=== PATIENT | female | born 1995 | race Caucasian/White ===

== ENCOUNTER 2020-03-04 15:32 | Outpatient (CLI) | payer OTHER, SELFPAY ==
--- NOTE | ~2020-03-04 | US_ITS ---
EXAMINATION: US thyroid DATE: 03/04/2020 15:54 INDICATION: Nontoxic goiter TECHNIQUE: Multiple ultrasound images of the thyroid were obtained. COMPARISON: 10/27/2014 FINDINGS: The right thyroid lobe measures 5.1 x 1.9 x 2.5 cm. The left thyroid lobe measures 5.3 x 1.8 x 2.2 c m. The thyroid isthmus measures 3 mm in thickness. No significant change in a 2.0 x 1.0 x 1.5 cm wide r than tall solid hypoechoic right thyroid nodule with ill-defined margins and without echogenic foci (TI-RADS 4, moderately suspicious , FNA if >=1.5 cm, annual followup is >1 cm). This nodule measured 1.8 x 1.0 x 1.2 cm on 10/27/2014 with biopsy on 12/11/2014 read as consistent with benign follicular n odule. Diffuse heterogeneous thyroid echogenicity with coarsened echotexture and increased vascular f low on color Doppler consistent with thyroiditis. IMPRESSION: 1. No significant change in a 2.0 cm TI RADS 4 right thyroid nodule with prior benign biopsy. 2. Heterogeneous hypervascular thyroid likely chronic lymphocytic (Jung) thyroiditis. Reviewed, dictated and finalized at location A. STRIAL HYGIENIST IMPRESSION: 1. No significant change in a 2.0 cm TI RADS 4 right thyroid nodule with prior benign biopsy. 2. Heterogeneous hypervascular thyroid likely chronic lymphocytic (Jung) t hyroiditis.
== END 2020-03-04 15:33 | disposition home or self-care (01) ==
LOC: ANHIMG 15:36
PROVIDERS: PCP Emergency Medicine; Visit Provider Emergency Medicine
DX: E04.9 Nontoxic goiter, unspecified (principal); R94.6 Abnormal results of thyroid function studies
CPT/HCPCS: 76536

== ENCOUNTER 2020-03-05 09:17 | Outpatient (CLI) | payer OTHER, SELFPAY ==
[2020-03-05 10:08] LABS: Alanine Aminotransferase 22 U/L (4-35); Albumin Level 4.2 g/dL (3.5-5.1); Alkaline Phosphatase 63 U/L (38-126); Anion Gap 6 mmol/L (8-16); Aspartate Amino Transferase 26 U/L (14-36); Bilirubin,Total 0.7 mg/dL (0.2-1.3); Blood Urea Nitrogen 11 mg/dL (7-17); Calcium 9.3 mg/dL (8.4-10.2); Carbon Dioxide 28 mmol/L (22-30); Chloride 102 mmol/L (98-107); Cholesterol 162 mg/dL (0-200); Estimated Glomerular Filt Rate > 60; Glucose 95 mg/dL (65-105); HDL Direct 63 mg/dL; Potassium 3.9 mmol/L (3.4-5.0); Sodium 136 mmol/L (137-145); Triglycerides 49 mg/dL (<150)
[2020-03-05 10:19] LABS: LDL Cholesterol Direct 81 mg/dL
[2020-03-05 10:39] LABS: Thyroid Stimulating Hormone 0.854 uIU/mL (0.465-4.680); Total Triiodothyronine (T3) 1.32 NG/ML (0.97-1.69)
[2020-03-05 10:58] LABS: Free T4 Free Thyroxine 1.12 ng/mL (0.78-2.19)
[2020-03-08 05:42] LABS: Thyroid Peroxidase Antibodies 593 IU/mL (<9)
== END 2020-03-05 09:18 | disposition home or self-care (01) ==
PROVIDERS: PCP Emergency Medicine; Visit Provider Emergency Medicine
DX: Z13.220 Encounter for screening for lipoid disorders (principal); E78.5 Hyperlipidemia, unspecified; R94.6 Abnormal results of thyroid function studies; E04.9 Nontoxic goiter, unspecified
CPT/HCPCS: 36415; 80053; 80061; 84439; 84443; 84480; 86376

== ENCOUNTER 2021-09-01 15:28 | Outpatient (CLI) | payer OTHER, SELFPAY ==
--- NOTE | ~2021-09-01 | US_ITS ---
EXAMINATION: US thyroid DATE: 09/01/2021 16:17 INDICATION: Nontoxic single thyroid nodule. TECHNIQUE: Multiple ultrasound images of the thyroid were obtained. COMPARISON: Ultrasound 03/04/2020, 12/11/14 FINDINGS: The right thyroid lobe measures 5.0 x 2.5 x 2.2 cm. The left thyroid lobe measures 4.8 x 2.2 x 1.6 c m. The thyroid demonstrates heterogeneous echogenicity and increased vascularity. In the right thyro id lobe, there is a 1.9 cm solid, isoechoic, wider than tall nodule with ill-defined margin without e chogenic foci (TI-RADS TR4), stable from 12/11/14 when biopsy was benign. IMPRESSION: 1. Heterogeneous, hypervascular thyroid, consistent with chronic lymphocytic (Jung) thyroiditis. 2. Stable benign right thyroid nodule. No follow-up is needed. Reviewed, dictated and finalized at location A. IMPRESSION: 1. Heterogeneous, hypervascular thyroid, consistent with chronic lymphocytic (H ashimoto) thyroiditis. 2. Stable benign right thyroid nodule. No follow-up is needed.
== END 2021-09-01 15:29 | disposition home or self-care (01) ==
PROVIDERS: PCP Emergency Medicine; Visit Provider Emergency Medicine
DX: E04.1 Nontoxic single thyroid nodule (principal)
CPT/HCPCS: 76536

== ENCOUNTER 2022-02-09 09:49 | Outpatient (CLI) | payer OTHER, SELFPAY ==
[2022-02-09 10:10] LABS: Basophils Absolute Auto 0.1 K/mm3 (0.0-0.1); Basophils Percent Auto 0.8 % (0.2-1.2); Eosinophils Absolute Auto 0.1 K/mm3 (0-0.3); Hemoglobin 12.5 g/dL (12.0-15.0); Immature Granulocyte Absolute 0.02 K/mm3 (0.00-0.031); Immature Granulocyte Percent A 0.3 % (0-0.5); Lymphocytes Absolute Auto 1.56 K/mm3 (0.9-3.2); Lymphocytes Percent Auto 22.1 % (18.3-44.2); Mean Corpuscular HGB Conc 33.8 g/dl (32-36); Mean Corpuscular Hemoglobin 29.3 pg (26-34); Mean Corpuscular Volume 86.9 fl (80-100); Mean Platelet Volume 10.2 fl (7.4-10.4); Monocytes Absolute Auto 0.4 K/mm3 (0.1-0.6); Monocytes Percent Auto 5.9 % (2.6-8.5); Neutrophils Absolute Auto 4.9 K/mm3 (1.3-6.7); Neutrophils Percent Auto 68.9 % (45.5-73.1); Platelet Count Result 271 k/mm3 (150-375); Red Blood Count 4.26 M/mm3 (4.2-5.4); Red Cell Distribution Width 12.7 % (11.5-14.5); White Blood Count 7.1 K/mm3 (4.5-10.0)
[2022-02-09 11:04] LABS: Free T4 Free Thyroxine 0.98 ng/mL (0.78-2.19); HIV 1/2 Ab P24 Ag Result Negative (Negative)
[2022-02-09 11:19] LABS: Hepatitis B Surface Antigen Negative (Negative); Rubella IgG Antibody 23.4 IU/ML
[2022-02-09 16:18] LABS: Rapid Plasma Reagin Non-Reactive (NonReactive)
[2022-02-13 15:52] LABS: CMV IgG Antibody <0.60 U/mL (<0.60)
[2022-02-14 16:25] LABS: Triiodothyronine T3 Free 3.5 pg/mL (2.3-4.2)
== END 2022-02-09 09:50 | disposition home or self-care (01) ==
LOC: ANHLAB 09:50
PROVIDERS: PCP Emergency Medicine; Visit Provider Obstetrics & Gynecology
DX: E06.3 Autoimmune thyroiditis (principal); N94.89 Other specified conditions associated with female genital organs and menstrual cycle
CPT/HCPCS: 36415; 84439; 84443; 84481; 84702; 85025; 86592; 86644; 86703; 86747; 86762; 86787; 86850; 86900; 86901; 87086; 87340; G0432

== ENCOUNTER 2022-02-10 16:02 | Outpatient (CLI) | payer OTHER, SELFPAY ==
--- NOTE | ~2022-02-10 | US_ITS ---
EXAMINATION: US OB <=14 wk fetus w TV DATE: 02/10/2022 16:44 INDICATION: Amenorrhea, unspecified. TECHNIQUE: Real-time transabdominal and transvaginal pelvic ultrasound was performed. COMPARISON: None. FINDINGS: TRANSABDOMINAL ULTRASOUND: The uterus measures 7.6 x 8.4 x 8.2 cm. TRANSVAGINAL ULTRASOUND: There is an intrauterine gestational sac. A yolk sac is identified. The fet al crown rump length measures 4.1 cm, which correlates with an estimated gestational age of 11 weeks and 0 day(s) (+/-) 1 week(s) and 0 day(s). heart motion is identified measuring 164 beats per m inute (bpm) by M-mode Doppler. The cervical length is normal. The right ovary measures 2.3 x 1.5 x 2. 1 cm. The left ovary measures 2.6 x 1.6 x 1.3 cm. There is no free fluid in the pelvis. IMPRESSION: 1. Single living intrauterine gestation with estimated date of delivery of 09/01/2022. Reviewed, dictated and finalized at location A. ON FACING MACHINE OPERATOR IMPRESSION: 1. Single living intrauterine gestation with estimated date of delivery of 09/01.
== END 2022-02-10 16:03 | disposition home or self-care (01) ==
LOC: ANHIMG 16:04
PROVIDERS: PCP Emergency Medicine; Visit Provider Obstetrics & Gynecology
DX: N91.2 Amenorrhea, unspecified (principal); Z33.1 Pregnant state, incidental
CPT/HCPCS: 76801; 76817

== ENCOUNTER 2022-05-05 10:31 | Outpatient (CLI) | payer OTHER, SELFPAY ==
[2022-05-05 11:24] LABS: Free T4 Free Thyroxine 0.69 ng/mL (0.78-2.19)
[2022-05-05 11:26] LABS: Thyroid Stimulating Hormone 0.511 uIU/mL (0.465-4.680)
== END 2022-05-05 10:32 | disposition home or self-care (01) ==
LOC: ANHLAB 10:33
PROVIDERS: PCP Emergency Medicine; Visit Provider Obstetrics & Gynecology
DX: E06.3 Autoimmune thyroiditis (principal)
CPT/HCPCS: 36415; 84439; 84443

== ENCOUNTER 2022-06-16 09:32 | Outpatient (CLI) | payer OTHER, SELFPAY ==
[2022-06-16 11:17] LABS: Basophils Absolute Auto 0.1 K/mm3 (0.0-0.1); Basophils Percent Auto 0.5 % (0.2-1.2); Eosinophils Absolute Auto 0.1 K/mm3 (0-0.3); Eosinophils Percent Auto 1.2 % (0-4.4); Hematocrit 35.5 % (37.0-47.0); Immature Granulocyte Absolute 0.09 K/mm3 (0.00-0.031); Immature Granulocyte Percent A 0.9 % (0-0.5); Lymphocytes Absolute Auto 1.46 K/mm3 (0.9-3.2); Lymphocytes Percent Auto 14.4 % (18.3-44.2); Mean Corpuscular HGB Conc 33.8 g/dl (32-36); Mean Corpuscular Hemoglobin 29.3 pg (26-34); Mean Corpuscular Volume 86.6 fl (80-100); Mean Platelet Volume 9.9 fl (7.4-10.4); Monocytes Absolute Auto 0.5 K/mm3 (0.1-0.6); Monocytes Percent Auto 4.4 % (2.6-8.5); Neutrophils Percent Auto 78.6 % (45.5-73.1); Platelet Count Result 244 k/mm3 (150-375); White Blood Count 10.1 K/mm3 (4.5-10.0)
[2022-06-16 11:27] LABS: Glucose 1 Hour PP 50gm Dose 137 mg/dL
[2022-06-16 11:58] LABS: Free T4 Free Thyroxine 1.09 ng/mL (0.78-2.19)
[2022-06-16 11:59] LABS: Thyroid Stimulating Hormone 0.016 uIU/mL (0.465-4.680)
[2022-06-16 12:08] LABS: HIV 1/2 Ab P24 Ag Result Negative (Negative)
== END 2022-06-16 09:33 | disposition home or self-care (01) ==
PROVIDERS: PCP Emergency Medicine; Visit Provider Obstetrics & Gynecology
DX: Z34.90 Encounter for supervision of normal pregnancy, unspecified, unspecified trimester (principal); E06.3 Autoimmune thyroiditis
CPT/HCPCS: 36415; 82947; 84439; 84443; 85025; 86703; G0432

== ENCOUNTER 2022-07-07 07:25 | Outpatient (CLI) | payer OTHER, SELFPAY ==
[2022-07-07 07:59] LABS: Glucose Fasting Gestational 86 mg/dL (>/=95)
[2022-07-07 09:27] LABS: Glucose 1 Hour Gest 199 mg/dL (>/=180)
[2022-07-07 10:43] LABS: Glucose 2 Hour Gest 176 mg/dL (>/= 155)
[2022-07-07 11:38] LABS: Glucose 3 Hour Gest 80 mg/dL (>/=140)
== END 2022-07-07 07:26 | disposition home or self-care (01) ==
LOC: ANHLAB 07:26
PROVIDERS: PCP Emergency Medicine; Visit Provider Obstetrics & Gynecology
DX: O99.810 Abnormal glucose complicating pregnancy (principal)
CPT/HCPCS: 36415; 76816; 82951; 82952

== ENCOUNTER 2022-07-07 14:04 | Outpatient (CLI) | payer OTHER, SELFPAY ==
--- NOTE | ~2022-07-07 | US_ITS ---
EXAMINATION: US OB follow up DATE: 07/07/2022 14:36 INDICATION: Encounter for supervision of normal . TECHNIQUE: Real-time ultrasound of the pelvis was performed. COMPARISON: Ultrasound 04/22/2022, 02/10/2022 FINDINGS: There is a single living fetus in breech presentation. The placenta is fundal and posterior, >5 cm f rom the cervix. heart rate is 134 beats per minute (bpm). The amniotic fluid index is 12.9 cm, which is normal. The following biometric data were obtained: Biparietal diameter (BPD): 8.1 cm; head circumference (HC): 30.2 cm; abdominal circumference (AC): 28 .4 cm; femur length (FL): 6.4 cm. These measurements are concordant. Estimated weight is 2031 g +/- 305 g, which correlates with the 62nd percentile when 09/01/22 is used as estimated date of delivery. As single measurements, these parameters are each equal to the following estimated gestational ages: BPD: 32 weeks 5 days. HC: 33 weeks 3 days. AC: 32 weeks 3 days. FL: 32 weeks 6 days. estimated gestational age based solely on measurements from this exam is 32 weeks 6 days +/- 2 weeks 2 days. IMPRESSION: 1. Single living fetus in breech presentation. 2. Estimated weight is 2031 g +/- 305 g, which correlates with the 62nd percentile when 09/01/22 is used as estimated date of delivery. This date was set by ultrasound on 02/10/2022. Reviewed, dictated and finalized at location A.
== END 2022-07-07 14:05 | disposition home or self-care (01) ==
LOC: ANHIMG 14:07
PROVIDERS: PCP Emergency Medicine; Visit Provider Obstetrics & Gynecology
DX: Z34.90 Encounter for supervision of normal pregnancy, unspecified, unspecified trimester (principal)
CPT/HCPCS: 76816

== ENCOUNTER 2022-08-01 09:15 | Outpatient (RCR) | payer OTHER, SELFPAY ==
[2022-07-28 09:34] VITALS: BMI 27.6
[2022-07-28 13:41] VITALS: BMI 27.6
== END 2022-10-17 08:59 | disposition home or self-care (01) ==
LOC: ANHDMC 09:15
PROVIDERS: PCP Emergency Medicine; Visit Provider Student in an Organized Health Care Education/Training Program
DX: O24.419 Gestational diabetes mellitus in pregnancy, unspecified control (principal); Z3A.00 Weeks of gestation of pregnancy not specified; Z71.3 Dietary counseling and surveillance; Z71.89 Other specified counseling
CPT/HCPCS: 97802; G0108

== ENCOUNTER 2022-08-09 16:57 | Outpatient (CLI) | payer OTHER, SELFPAY ==
--- NOTE | ~2022-08-09 | US_ITS ---
EXAMINATION: US OB follow up DATE: 08/09/2022 16:59 INDICATION: Assess growth and amniotic fluid index. Gestational diabetes during third trimester . TECHNIQUE: Real-time ultrasound of the pelvis was performed. The interpreting radiologist was not pre sent for the study. COMPARISON: None. FINDINGS: There is a single living fetus in vertex presentation. The placenta is posterior fundal. heart rate is 136 beats per minute (bpm). The amniotic fluid index is 20.7 cm, which is normal (5th%-95%: 7.7-24.9 cm at 36 weeks estimated gestational age). The following biometric data were obtained: BPD: 9.0 cm -> 36 weeks 2 days Head circumference: 32.3 cm -> 36 weeks 3 days Abdominal circumference: 33.6 cm -> 37 weeks 4 days Femur length: 7.2 cm -> 36 weeks 4 days These measurements are concordant. Head circumference to abdominal circumference ratio: 0.96 (normal range 0.92-1.06). Estimated weight: 3101 g (+/-) 465 g or 6 lbs. 13 oz. (+/-) 1 lbs. 0 oz. IMPRESSION: 1. Single living fetus in vertex presentation with heart rate of 136 bpm. 2. Normal amniotic fluid index of 20.7 cm. 3. Estimated weight is 64th percentile by Hadlock criteria when 09/01/2022 is used as the estimat ed date of delivery (LAYLA). Please correlate with clinical information or earlier ultrasounds for most accurate LAYLA. Reviewed, dictated and finalized at location A. IMPRESSION: 1. Single living fetus in vertex presentation with heart rate of 136 bpm. 2. Normal amniotic fluid index of 20.7 cm. 3. Estimated weight is 64th percentile by Hadlock criteria when 09/01/2022 is used as the estimated date of delivery (LAYLA). Please correlate with clinical information or earlier ultrasounds for most accurate LAYLA.
[2022-08-09 18:54] LABS: Thyroid Stimulating Hormone Reflex < 0.015 uIU/mL (0.465-4.68)
[2022-08-10 11:45] LABS: Free T4 Free Thyroxine Reflex 1.02 ng/dL (0.78-2.19)
[2022-08-10 14:31] LABS: Total Triiodothyronine (T3) 2.16 NG/ML (0.97-1.69)
== END 2022-08-09 16:58 | disposition home or self-care (01) ==
PROVIDERS: PCP Emergency Medicine; Visit Provider Obstetrics & Gynecology
DX: Z34.90 Encounter for supervision of normal pregnancy, unspecified, unspecified trimester (principal); E06.3 Autoimmune thyroiditis
CPT/HCPCS: 36415; 59025; 76816; 84439; 84443; 84480

== ENCOUNTER 2022-08-19 09:14 | Outpatient (CLI) | payer OTHER, SELFPAY ==
[2022-08-19 11:12] LABS: Thyroid Stimulating Hormone < 0.015 uIU/mL (0.465-4.680)
[2022-08-19 11:22] LABS: Total Triiodothyronine (T3) 1.67 NG/ML (0.97-1.69)
[2022-08-26 05:32] LABS: Triiodothyronine T3 Free 2.9 pg/mL (2.3-4.2)
== END 2022-08-19 09:15 | disposition home or self-care (01) ==
PROVIDERS: PCP Emergency Medicine; Referring Provider Obstetrics & Gynecology; Visit Provider Internal Medicine Endocrinology, Diabetes & Metabolism
DX: E06.3 Autoimmune thyroiditis (principal); E04.9 Nontoxic goiter, unspecified
CPT/HCPCS: 36415; 84439; 84443; 84480; 84481

== ENCOUNTER 2022-08-25 10:30 | Outpatient (RCR) | payer OTHER, SELFPAY ==
[2022-07-21 13:44] VITALS: BP 124/72; PULSE 95
[2022-07-27 12:50] VITALS: BP 112/71; PULSE 95
[2022-08-03 15:02] VITALS: BP 120/78; PULSE 98
[2022-08-09 12:19] VITALS: BP 117/67; PULSE 86
[2022-08-18 12:00] VITALS: BP 112/71
--- NOTE | ~2022-08-25 | US_ITS ---
EXAMINATION: US OB limited w BPP DATE: 08/25/2022 12:38 CDT INDICATION: Diabetes mellitus. TECHNIQUE: Real-time transabdominal obstetric ultrasound. FINDINGS: Comparison to 08/09/2022 There is a single living fetus in vertex presentation. The placenta is fundal posterior without plac enta previa. cardiac activity and movement is noted with a heart rate of 137 beats per minute. A mniotic fluid index is high measuring 24.7 cm (normal range for gestational age is 7.2-22.6 cm). Biophysical profile: breathin of 2 movement: 2 of 2 tone: 2 of 2 Amniotic flud pocket: 2 of 2 Total score: 8 of 8 IMPRESSION: 1. Single living intrauterine in vertex presentation. 2: Total biophysical profile score of 8/8. 3: Polyhydramnios. DOLORES measures 24.7 cm. Reviewed, dictated and finalized at location L.
[2022-08-25 12:55] VITALS: BP 118/64; PULSE 83
== END 2022-09-02 17:39 | disposition home or self-care (01) ==
LOC: ANHOBOP 10:30
PROVIDERS: PCP Emergency Medicine; Visit Provider Obstetrics & Gynecology
DX: O24.419 Gestational diabetes mellitus in pregnancy, unspecified control (principal); O26.893 Other specified pregnancy related conditions, third trimester; R03.0 Elevated blood-pressure reading, without diagnosis of hypertension; Z3A.34 34 weeks gestation of pregnancy; Z3A.35 35 weeks gestation of pregnancy; Z3A.36 36 weeks gestation of pregnancy; Z3A.38 38 weeks gestation of pregnancy; Z3A.39 39 weeks gestation of pregnancy
CPT/HCPCS: 59025; 76815; 76819; J2795

== ENCOUNTER 2022-08-30 15:48 | Inpatient (IN) | payer OTHER, SELFPAY ==
--- NOTE | 2022-08-30 14:33 | PM.IMHP ---
H&P: HPI History of Present Illness Date/Time: 08/30/22 14:33 Chief Complaint: induction of labor Narrative: Kelli is a 26yo @ 39.5wks who presents for IOL. She reports good movement. No regular ctx. No VB or LOF. She has had regular care. Her is complicated by: - A1GDM - Jung's thyroiditis; recently hyperthyroid, endo following Review of Systems Constitutional: Constitutional: Denies chills and Denies fever(s) Eyes: Eyes: Denies change in vision Cardiovascular: Cardiovascular: Denies chest pain Respiratory: Respiratory: Denies dyspnea Gastrointestinal: Gastrointestinal: Denies abdominal pain Genitourinary: Genitourinary: Denies abnormal vaginal bleeding Neurologic: Denies headache(s) [facility] Past Medical History Medical History Abnormal glucose tolerance in Abnormal thyroid function test Suppression of menses Thyroid enlargement Surgical History Surgical History [place] teeth removed (~2016) Family History Family History Sibling Epilepsy Father Type 2 diabetes mellitus with diabetic neuropathy, unspecified Diabetes mellitus Vision loss Grandparent Back pain Cataract Diabetes mellitus Hypertension Mother Diabetes mellitus Hyperlipidemia, unspecified Hypertension Social History Social History Social History: Patient drinks 2-3 cups of caffeine daily. She exercises once weekly. 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 Gender identity (if verbalized by the patient): Female Sexual Orientation (if Verbalized by the Patient): Straight or Heterosexual Spiritual care concerns: No Meds Home Medications and Allergies Home Medications Medication Instructions Recorded Confirmed Type vitamins-iron fumarate 65 1 tablet PO DAILY 05/03/22 08/30/22 History mg iron-folic acid 1 mg tablet Allergies Allergy/AdvReac Type Severity Reaction Status Date / Time No Known Drug Allergies Allergy Unknown none Verified 08/25/22 09:43 Exam Const: General: cooperative, healthy appearing, comfortable and no acute distress Resp: Effort & Inspection: normal respiratory effort Cardio: Rate: regular rate GI: GI Palp: No abdominal tenderness : Other: FHT's: 130's/ mod nathanael/ + accels/ no decels - cat 1 TOCO: ctxs q2-3min Cervix: /-3 Presentation: cephalic Membranes: intact Skin: General skin exam: normal color Neuro: General: patient oriented x3 Extrem: General: normal to inspection Psych: Appearance: grossly normal Affect: normal affect Attitude: cooperative Assessment and Plan Assessment and plan (1) Gestational diabetes: Qualifiers: Gestational diabetes mellitus control: diet-controlled Trimester: third trimester Qualified Code(s): O24.410 - Gestational diabetes mellitus in , diet controlled Code(s): O24.419 - Gestational diabetes mellitus in , unspecified control Status: Acute Assessment and Plan: - Proceed with medical IOL; cervidil overnight - Continuous monitoring; currently reassuring - if tachysystole; will pu
[2022-08-30 16:39] VITALS: BMI 29.0
[2022-08-30 16:50] LABS: Basophils Absolute Auto 0.1 K/mm3 (0.0-0.1); Basophils Percent Auto 0.6 % (0.2-1.2); Eosinophils Absolute Auto 0.1 K/mm3 (0-0.3); Eosinophils Percent Auto 0.7 % (0-4.4); Hematocrit 35.6 % (37.0-47.0); Hemoglobin 11.9 g/dL (12.0-15.0); Immature Granulocyte Absolute 0.09 K/mm3 (0.00-0.031); Immature Granulocyte Percent A 0.7 % (0-0.5); Lymphocytes Absolute Auto 1.82 K/mm3 (0.9-3.2); Lymphocytes Percent Auto 14.3 % (18.3-44.2); Mean Corpuscular HGB Conc 33.4 g/dl (32-36); Mean Corpuscular Hemoglobin 28.7 pg (26-34); Mean Corpuscular Volume 85.8 fl (80-100); Mean Platelet Volume 10.8 fl (7.4-10.4); Monocytes Absolute Auto 0.6 K/mm3 (0.1-0.6); Monocytes Percent Auto 4.7 % (2.6-8.5); Neutrophils Absolute Auto 10.1 K/mm3 (1.3-6.7); Platelet Count Result 254 k/mm3 (150-375); Red Blood Count 4.15 M/mm3 (4.2-5.4); Red Cell Distribution Width 13.8 % (11.5-14.5); White Blood Count 12.7 K/mm3 (4.5-10.0)
[2022-08-30 16:56] LABS: Glucose Point of Care 85 mg/dl (65-105)
[2022-08-30 17:00] VITALS: BP 132/76; PULSE 100
[2022-08-30 17:15] VITALS: BP 130/75; PULSE 89
--- NOTE | 2022-08-30 17:22 | WPDHPUPDATE1 ---
History and Physical Update Update Date/Time: 08/30/22 17:22 History and Physical has been reviewed, including an updated exam of the patient. There are NO changes in the patient's condition. Risks, benefits, and alternatives have been discussed and questions answered. Patient agrees to proceed with procedure.
[2022-08-30] MEDS: DINOPROSTONE 10 MG VAG INSERT VAGINAL (17:29)
--- NOTE | 2022-08-30 17:29 | WPDANESEPPF ---
Anes - Initial Pre Proc Eval Procedure: Labor epidural Date/Time: 08/30/22 17:29 Surgeon: Julissa Hartmann MD Pre Op Diagnosis: Labor pain Pre Op Diagnosis: Induction of Labor Patient Data Age: 26 Gender: F Height: 1.65 m Weight: 79 kg Last Vital Signs Pulse 89 08/30/22 17:15 BP 130/75 08/30/22 17:15 O2 Del Method Room Air 08/30/22 16:39 Allergies Allergy/AdvReac Type Severity Reaction Status Date / Time No Known Drug Allergies Allergy Unknown none Verified 08/25/22 09:43 Home Medications Medication Instructions Recorded Confirmed Type vitamins-iron fumarate 65 1 tablet PO DAILY 05/03/22 08/30/22 History mg iron-folic acid 1 mg tablet Laboratory Tests 08/30/22 08/30/22 16:20 16:42 WBC 12.7 H K/mm3 (4.5-10.0) RBC 4.15 L M/mm3 (4.2-5.4) Hgb 11.9 L g/dL (12.0-15.0) Hct 35.6 L % (37.0-47.0) MCV 85.8 fl (80-100) MCH 28.7 pg (26-34) MCHC 33.4 g/dl (32-36) RDW 13.8 % (11.5-14.5) Plt Count 254 k/mm3 (150-375) MPV 10.8 H fl (7.4-10.4) Immature Gran % (Auto) 0.7 H % (0-0.5) Neut % (Auto) 79.0 H % (45.5-73.1) Lymph % (Auto) 14.3 L % (18.3-44.2) Liberty % (Auto) 4.7 % (2.6-8.5) Eos % (Auto) 0.7 % (0-4.4) Baso % (Auto) 0.6 % (0.2-1.2) Lymph # (Auto) 1.82 K/mm3 (0.9-3.2) Liberty # (Auto) 0.6 K/mm3 (0.1-0.6) Eos # (Auto) 0.1 K/mm3 (0-0.3) Baso # (Auto) 0.1 K/mm3 (0.0-0.1) Abs Immat Gran (auto) 0.09 H K/mm3 (0.00-0.031) Absolute Neuts (auto) 10.1 H K/mm3 (1.3-6.7) Absolute Nucleated RBC 0.0 K/mm3 (0.0-0.012) Nucleated RBC % 0.0 % (0.0-0.2) POC Capillary Glucose 85 mg/dl (65-105) RPR Pending Blood Type A Positive Antibody Screen Pending Patient hx anesthesia problems: none Family hx anesthesia problems: none Results Review: All pre-operative results and documents have been reviewed as part of the pre-operative evaluation. [facility] Past Medical History Medical History Abnormal glucose tolerance in Abnormal thyroid function test Suppression of menses Thyroid enlargement Surgical History Surgical History [place] teeth removed (~2015) Family History Family History Sibling Epilepsy Father Type 2 diabetes mellitus with diabetic neuropathy, unspecified Diabetes mellitus Vision loss Grandparent Back pain Cataract Diabetes mellitus Hypertension Mother Diabetes mellitus Hyperlipidemia, unspecified Hypertension Social History Social History Social History: Patient drinks 2-3 cups of caffeine daily. She exercises once weekly. 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
[2022-08-30 19:00] VITALS: RESP 16; TEMP 36.3
[2022-08-30] MEDS: LACTATED RINGERS 1,000 ML 125 ML IV CONT (19:55)
[2022-08-30 21:00] VITALS: RESP 18; TEMP 36.4
[2022-08-30 21:59] LABS: Glucose Point of Care 105 mg/dl (65-105)
[2022-08-31] VITALS (110 sets, daily range): BP systolic 101–256; BP diastolic 59–202; PULSE 65–124; RESP 18; TEMP 36.3–37.5; O2SAT 95–100
[2022-08-31 02:07] LABS: Glucose Point of Care 84 mg/dl (65-105)
--- NOTE | 2022-08-31 06:52 | PM.OBPNLAB ---
Pain Control Date/time seen: 08/31/22 06:52 Pain control: tolerating well Pelvic Exam Dilation (cm): 1 (.5) Effacement (%): 80 station: -3 Amniotic membrane status: Intact Contractions Monitor mode: External Contraction frequency: 2 (-3) Contraction pattern: Regular Contraction intensity: Moderate Status status: Category l Assessment and Plan Assessment: induction ongoing Comments: - fong catheter placed at 0650 with 30cc of saline in the balloon
[2022-08-31] MEDS: OXYTOCIN 30 UNITS/NS 500 ML 30 UNITS/500 ML BAG IV CONT (07:03)
[2022-08-31 07:16] LABS: Glucose Point of Care 91 mg/dl (65-105)
[2022-08-31] MEDS: LACTATED RINGERS 1,000 ML 125 ML IV CONT ×2 (09:17→16:21)
[2022-08-31 11:04] LABS: Glucose Point of Care 87 mg/dl (65-105)
--- NOTE | 2022-08-31 12:13 | PM.OBPNLAB ---
Pain Control Date/time seen: 08/31/22 12:13 Pain control: epidural Pelvic Exam Dilation (cm): 5 (.5) Effacement (%): 90 station: -1 Amniotic membrane status: Ruptured (AROM, clear 1210) Contractions Monitor mode: External Contraction frequency: 5 Contraction pattern: Regular Contraction intensity: Moderate Status status: Category ll Comments: occasional variable and late noted while on pitocin; reassuring since stopping the pitocin Assessment and Plan Assessment: induction ongoing Plan: continuous present management Comments: - will restart low dose pitocin
[2022-08-31] MEDS: FAMOTIDINE 20 MG/2 ML VIAL IV PUSH (14:05)
[2022-08-31] MEDS: ONDANSETRON INJ 4 MG/2 ML VIAL IV PUSH (14:05)
[2022-08-31 14:09] LABS: Glucose Point of Care 72 mg/dl (65-105)
[2022-08-31 15:56] LABS: Rapid Plasma Reagin Non-Reactive (NonReactive)
--- NOTE | 2022-08-31 17:49 | PM.OBPRVD ---
OB - Delivery Note Procedure Delivery date: 08/31/22 Events: Gestational Diabetes (A1) Induction method: Per Cervidil Protocol Delivery augmentation: Rupture of Membranes and Pitocin Delivery monitor: External FHT and External Uterine Route of delivery: Laceration Description: Vaginal (into right labial) and Superficial Delivery repair: vicryl Specimen: Yes (placenta) Quantitative Blood Loss (ml): 200 Anesthesia type: Epidural Disposition: Floor [place] Baby Date of : 08/31/22 Time of : 17:29 Weeks of gestation at delivery: 39 (.6) gender: Male presentation: vertex position: Right Occiput Anterior Placenta delivery description: Expressed Cord Vessel Description: 3 Vessels, Nuchal Cord, Loose and Delayed Cord Clamping score one minute: 8 score five minutes: 9 Narrative: Kelli progressed to complete dilation and began pushing. She pushed for approximately 2-1/2 hours. She delivered the head over intact perineum. Nuchal cord was noted but delivered through. She easily delivered the infant's shoulders and body without complication. The was immediately placed skin to skin where cry was heard. Delayed cord clamping was performed. The umbilical cord was doubly clamped and cut. A segment of the cord was collected for cord gases. The remaining cord blood was collected for typing. With Pitocin running and gentle downward traction on the cord, the placenta delivered without complications. Minimal bleeding was noted with firm uterine tone. She was examined and a small vaginal laceration extending into the right labia was noted. The laceration was repaired in the normal fashion using 2-0 Vicryl. Sponge, lap, instrument, and needle counts were correct at the end the procedure. Mom and baby were left bonding in the birthing suite in a stable condition. [facility] Delivery Billing Delivery Delivery: Delivery Charge
[2022-08-31] MEDS: OXYTOCIN 30 UNITS/NS 500 ML 30 UNITS/500 ML BAG 125 UNITS IV CONT (18:12)
[2022-08-31] MEDS: IBUPROFEN 600 MG TABLET PO (23:50)
[2022-09-01 01:00] VITALS: BP 99/60; PULSE 97; RESP 18; TEMP 37; O2SAT 98
[2022-09-01 04:18] VITALS: BP 118/76; PULSE 88; RESP 18; TEMP 36.6; O2SAT 97
[2022-09-01 05:04] LABS: Hemoglobin 11.5 g/dL (12.0-15.0)
[2022-09-01 07:35] VITALS: BP 110/72; PULSE 89; RESP 18; TEMP 36.7; O2SAT 98
--- NOTE | 2022-09-01 07:49 | WPDANLDPN2 ---
Anes-Prog Note L&D Date/Time: 09/01/22 07:49 Comfortable throughout: labor and delivery Neuraxial method: epidural Epidural/Spinal procedure site: clean & non-tender Neuro status: Neuro function grossly intact. Cardiovascular status: normal Respiratory status: normal Airway patency: baseline Mental status: baseline Post-Op hydration status: normal Vital Signs: Last Vital Signs Temp 36.6 C 09/01/22 04:18 Pulse 88 09/01/22 04:18 Resp 18 09/01/22 04:18 BP 118/76 09/01/22 04:18 Pulse Ox 97 09/01/22 04:18 O2 Del Method Room Air 09/01/22 01:00 Pain score (VAS): 1 I/O: Intake & Output 08/31/22 08/31/22 09/01/22 15:59 23:59 07:59 Intake Total 1500 Output Total 200 Balance 1300 Post-procedural complaints: none Patient feedback: Patient satisfied with anesthetic care.
[2022-09-01] MEDS: IBUPROFEN 600 MG TABLET PO (08:55)
[2022-09-01] MEDS: MULTIVIT/MIN/PREN/FOL AC/IRON TABLET 1 TAB PO (08:55)
[2022-09-01] MEDS: DOCUSATE SODIUM 100 MG CAPSULE PO (08:56)
[2022-09-01] MEDS: WITCH HAZEL 40 PADS 1 PAD TOPICAL (08:57)
[2022-09-01] MEDS: BENZOCAINE 20% AER SPR (*SP) 56 GM CAN 1 SPRAY TOPICAL (08:57)
[2022-09-01 12:30] VITALS: BP 124/78; PULSE 91; RESP 18; TEMP 36.5; O2SAT 99
--- NOTE | 2022-09-01 12:57 | P.PNOB_ITS ---
OB - PN: Subj Subjective Date/time seen: 09/01/22 12:57 Narrative: PPD#1 Kelli reports doing well today. 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 Her pain is controlled. She is tolerating regular diet, voiding, passing gas, and ambulating without issues. She is breast feeding. She would like her son circumcised. OB - PN: Obj Data Labs 09/01/22 04:27 Labs: Laboratory Results - last 24 hr 08/30/22 08/31/22 09/01/22 16:20 14:01 04:27 Hgb 11.5 L Hct 35.0 L POC Capillary Glucose 72 RPR Non-reactive OB - PN A/P Assessment and Plan (1) Status post vaginal delivery: Status: Acute Plan day: 1 Plan: routine care Comments: - Pelvic rest; take meds as prescribed - ER return precautions: fever, n/v/abd pain, bleeding, HTN Time Spent With Patient Time: Total time spent is greater than 50% in coordination of care (as documented) at patient's floor/unit and/or counseling patient: Review of Systems Constitutional: Constitutional: Denies chills, Denies fever(s) and Denies headache(s) Eyes: Eyes: Denies change in vision ENT: Denies dizziness and Denies headache(s) Cardiovascular: Cardiovascular: Denies chest pain, Denies palpitations and Denies dyspnea Respiratory: Respiratory: Denies cough and Denies dyspnea Gastrointestinal: Gastrointestinal: Denies nausea and Denies vomiting Neurologic: Denies dizziness and Denies headache(s) Endocrine: Endocrine: Denies palpitations Exam Const: General: cooperative, comfortable and no acute distress Orientation/consciousness: patient oriented x3 Resp: Effort & Inspection: normal respiratory effort Auscultation: clear to auscultation bilaterally Cardio: Rate: regular rate GI: Inspection: non-distended GI Palp: No abdominal tenderness and Yes Soft to palpation Auscultation: normal bowel sounds : Other: fundus firm Skin: General skin exam: normal color Neuro: General: patient oriented x3 Extrem: General: normal to inspection Psych: Appearance: grossly normal Affect: normal affect Attitude: cooperative
[2022-09-01 18:47] VITALS: BP 119/86; PULSE 96; RESP 16; TEMP 36.7; O2SAT 100
[2022-09-02 07:50] VITALS: BP 114/70; PULSE 92; RESP 18; TEMP 36.8; O2SAT 99
[2022-09-02] MEDS: IBUPROFEN 600 MG TABLET PO (08:00)
[2022-09-02] MEDS: MULTIVIT/MIN/PREN/FOL AC/IRON TABLET 1 TAB PO (08:00)
[2022-09-02] MEDS: DOCUSATE SODIUM 100 MG CAPSULE PO (08:00)
--- NOTE | 2022-09-02 11:43 | PM.OBDSVD ---
DS: Admitting Diagnosis Discharge Date 09/02/22 Admitting Diagnosis induction of labor A1gdm DS: Discharge Diagnosis Discharge Diagnosis (1) Status post vaginal delivery: Status: Acute OB - DS: Summary OB Procedures : NST and Ultrasound OB Procedures Intrapartum: Spontaneous Vag Delivery OB Procedures: : None Peripartum Data Delivery Method: Natural Vaginal Laceration Description: Vaginal - 1st Degree and Labial complications: none 1: Gender: Male Disposition of : home Status at Discharge Functional status at discharge: independent ambulation Overall status at discharge: patient is back to baseline Time Spent with Patient Time attestation: Total time spent providing and/or coordinating discharge services: Time spent: Less than 30 minutes Exam Const: General: cooperative, healthy appearing, comfortable and no acute distress Orientation/consciousness: patient oriented x3 Resp: Effort & Inspection: normal respiratory effort Auscultation: clear to auscultation bilaterally Cardio: Rate: regular rate GI: Inspection: non-distended GI Palp: No abdominal tenderness and Yes Soft to palpation Auscultation: normal bowel sounds : Other: fundus firm Skin: General skin exam: normal color Neuro: General: patient oriented x3 Extrem: General: normal to inspection Psych: Appearance: grossly normal Affect: normal affect Attitude: cooperative DS: Data Data Completed and Pending Completed studies during hospitalization: Pending at discharge 08/31/22 17:34 Surgical [PTH] Routine Discharge Plan Discharge Attending physician on discharge: Julissa Hartmann Discharging Clinician: Julissa Hartmann Anticipated Discharge Date/Time: 09/02/22 15:00 Patient Disposition: Home, Self-Care Activity: may shower, no straining and pelvic rest Diet: regular Discharge Instructions: Education: Mom and Baby Guide Given to: Mother Follow-Up: Call your delivering provider's office for an appointment to be seen in: 4 Weeks Mom [facility] follow[facility]up appointment. Appointment Date/Time: September 03, 2022 at 10:00 am What to expect at your follow-up visit: Blood Pressure Check Physical Assessment Call [phone] if you are unable to keep your appointment time. BREAST CARE: * Wear a snug supportive bra. * For engorgement discomfort: Breast Feeding: * Apply warm moist washcloths * Express milk as needed to relieve engorgement * Wear loose clothing * For sore nipples: * Identify correct latch-on * Apply warm moist washcloths before and after nursing * Air dry nipples after nursing * May apply Lansinoh cream to nipples EPISIOTOMY/PERINEAL CARE: * Until bleeding stops, use your hortencia bottle after urinating * Change your pad frequently throughout the day * You may take sitz baths several times a day (fill your bathtub with warm water and soak for 20 minutes.) Do NOT bathe in the water * No tub baths until seen by your physician - You may shower ACTIVITY: * Rest as much as possible. * Do not exercise or lift anything heavier than your baby (such as laundry or other children.) * Avoid stairs or driving as much as possible. * Do not put anything into the vagina. No douching, tampons, or sexual activity until seen by physician. NOTIFY PHYSICIAN IF YOU HAVE ANY QUESTIONS OR IF ANY OF THE FOLLOWING SYMPTOMS OCCUR: * If your vaginal area becomes red, swollen, or more painful than what you have experienced in the hospital. * If your vaginal bleeding becomes foul smelling. * If your vaginal bleeding becomes more heavy than a period or if your bleeding changes from pink to bright red. However, you may pass an occasional walnut-sized clot once or twice for the first week . * If you experience a s
--- NOTE | 2022-09-02 15:21 | PC.NURSE ---
[id number] Consulted with patient to assess needs related to . Mother led conversation with her experience with feeding baby so far with visible small bruises on bilateral areolas. Mother works well with her infant and has supplemented related to infant fussing after feedings. Reviewed working with infant, supporting breast and how to protect the nipples with an optimal deep latch, good positioning, and good hand washing. Encouraged understanding the benefits of skin to skin, responding to feeding cues, frequencies of feeding 8-12 times in 24 hours (approximately 2-3 hours), duration of feedings, milk production, intake/output feeding sheet and signs of adequate intake encouraging swallowing at the breast. Reviewed positioning and alignment, supporting breast, off-centered (asymmetrical latch) and leading with the chin with big, open, wide gape. latched optimally to the left breast in football position. Education given to mother of how to visualize suck/swallow ratios and listen for drinking at the breast. was able to maintain latch without discomfort to mother. Nipple care reviewed with optimal latch, good positioning and using clean hands when feeding her infant and touching her breast. Resources used to facilitate learning were used from the mom and baby guide. Mother voiced understanding of the education shared, to call for assistance if the infant does not latch or if there is discomfort with . Reported to the primary RN. 1110- Assessed flange size and discussed cleaning, care and frequency to protect her milk supply. Mother voiced knowledge of education and has Mother/baby RN experience as well. Encouraged the new mother to call with any questions or concerns.
[2022-09-03 10:16] VITALS: BP 115/78; PULSE 78; RESP 20; TEMP 37; O2SAT 100
== END 2022-09-02 14:15 | disposition home or self-care (01) | DRG 807 ==
LOC: ANHLDR 08-31 14:56 → ANHOB2 08-31 20:14
PROVIDERS: Admitting Provider Obstetrics & Gynecology; PCP Emergency Medicine; Visit Provider Obstetrics & Gynecology
DX: O24.420 Gestational diabetes mellitus in childbirth, diet controlled (principal); Z37.0 Single live birth; O99.284 Endocrine, nutritional and metabolic diseases complicating childbirth; E06.3 Autoimmune thyroiditis; O70.0 First degree perineal laceration during delivery; O69.81X0 Labor and delivery complicated by cord around neck, without compression, not applicable or unspecified; O77.0 Labor and delivery complicated by meconium in amniotic fluid; Z3A.39 39 weeks gestation of pregnancy
CPT/HCPCS: 36415; 82948; 85014; 85018; 85025; 86592; 86850; 86900; 86901; 88307; A9270; J2405; J2590; J2795; J7120

== ENCOUNTER 2022-09-08 11:51 | Outpatient (CLI) | payer OTHER, SELFPAY ==
[2022-09-08 12:52] LABS: Free T4 Free Thyroxine 0.86 ng/mL (0.78-2.19)
[2022-09-08 12:58] LABS: Total Triiodothyronine (T3) 2.05 NG/ML (0.97-1.69)
[2022-09-08 13:06] LABS: Thyroid Stimulating Hormone 0.327 uIU/mL (0.465-4.680)
[2022-09-12 13:23] LABS: Triiodothyronine T3 Free 3.3 pg/mL (2.3-4.2)
== END 2022-09-08 11:52 | disposition home or self-care (01) ==
LOC: ANHLAB 11:53
PROVIDERS: PCP Emergency Medicine; Visit Provider Internal Medicine Endocrinology, Diabetes & Metabolism
DX: E04.9 Nontoxic goiter, unspecified (principal); R94.6 Abnormal results of thyroid function studies
CPT/HCPCS: 36415; 84436; 84439; 84443; 84480; 84481

== ENCOUNTER 2022-10-26 09:36 | Outpatient (CLI) | payer OTHER, SELFPAY ==
[2022-10-26 10:10] LABS: Alanine Aminotransferase 36 U/L (6-35); Albumin Level 4.6 g/dL (3.5-5.1); Alkaline Phosphatase 82 U/L (38-126); Anion Gap 10 mmol/L (8-16); Aspartate Amino Transferase 33 U/L (14-36); Bilirubin,Total 0.7 mg/dL (0.2-1.3); Blood Urea Nitrogen 15 mg/dL (7-17); Calcium 9.8 mg/dL (8.4-10.2); Carbon Dioxide 27 mmol/L (22-30); Chloride 101 mmol/L (98-107); Cholesterol 223 mg/dL (0-200); Estimated Glomerular Filt Rate > 60; Glucose 81 mg/dL (65-110); HDL Direct 89 mg/dL; Sodium 138 mmol/L (137-145); Triglycerides 67 mg/dL (<150)
[2022-10-26 10:21] LABS: LDL Cholesterol Direct 102 mg/dL
[2022-10-26 10:52] LABS: Thyroid Stimulating Hormone 0.052 uIU/mL (0.465-4.680)
[2022-10-26 10:56] LABS: Free T4 Free Thyroxine 1.38 ng/mL (0.78-2.19)
[2022-10-29 13:06] LABS: Vitamin D 1,25 (OH)2 Total 43 pg/mL (18-72); Vitamin D2 1,25 (OH)2 <8 pg/mL; Vitamin D3 1,25 (OH)2 43 pg/mL
[2022-10-30 05:21] LABS: Triiodothyronine T3 Free 3.9 pg/mL (2.3-4.2)
== END 2022-10-26 09:37 | disposition home or self-care (01) ==
PROVIDERS: PCP Emergency Medicine; Visit Provider Internal Medicine Endocrinology, Diabetes & Metabolism
DX: R94.6 Abnormal results of thyroid function studies (principal); E78.5 Hyperlipidemia, unspecified; E55.9 Vitamin D deficiency, unspecified; E11.9 Type 2 diabetes mellitus without complications; E04.9 Nontoxic goiter, unspecified
CPT/HCPCS: 36415; 80053; 80061; 82652; 83036; 84439; 84443; 84481

== ENCOUNTER 2022-11-07 12:39 | Outpatient (CLI) | payer OTHER, SELFPAY ==
[2022-11-07 13:38] LABS: Free T4 Free Thyroxine 1.03 ng/mL (0.78-2.19)
[2022-11-07 13:50] LABS: Thyroid Stimulating Hormone 0.095 uIU/mL (0.465-4.680)
[2022-11-09 13:22] LABS: Thyrotropin Receptor Antibody <1.00 IU/L (<=2.00)
[2022-11-11 14:35] LABS: Thyroid Stimulating Immunoglob <89 % baseline (<140)
== END 2022-11-07 12:40 | disposition home or self-care (01) ==
LOC: ANHLAB 12:41
PROVIDERS: PCP Emergency Medicine; Visit Provider Internal Medicine Endocrinology, Diabetes & Metabolism
DX: E04.9 Nontoxic goiter, unspecified (principal); R79.89 Other specified abnormal findings of blood chemistry
CPT/HCPCS: 36415; 83519; 84439; 84443; 84445; 84481

== ENCOUNTER 2022-11-15 14:21 | Outpatient (CLI) | payer OTHER, SELFPAY ==
[2022-11-15 15:32] LABS: Beta HCG Quantitative < 2.39 mIU/ML
== END 2022-11-15 14:22 | disposition home or self-care (01) ==
LOC: ANHLAB 14:23
PROVIDERS: PCP Emergency Medicine; Visit Provider Obstetrics & Gynecology
DX: N92.6 Irregular menstruation, unspecified (principal)
CPT/HCPCS: 36415; 84702

== ENCOUNTER 2022-12-23 12:06 | Outpatient (CLI) | payer OTHER, SELFPAY ==
[2022-12-23 13:24] LABS: Free T4 Free Thyroxine 0.89 ng/mL (0.78-2.19)
[2022-12-28 06:38] LABS: Triiodothyronine T3 Free 3.2 pg/mL (2.3-4.2)
== END 2022-12-23 12:07 | disposition home or self-care (01) ==
LOC: ANHLAB 12:07
PROVIDERS: PCP Emergency Medicine; Visit Provider Internal Medicine Endocrinology, Diabetes & Metabolism
DX: R79.89 Other specified abnormal findings of blood chemistry (principal); E04.9 Nontoxic goiter, unspecified
CPT/HCPCS: 36415; 84439; 84443; 84481

== ENCOUNTER 2025-03-31 10:22 | Outpatient (CLI) | payer OTHER, SELFPAY ==
--- NOTE | ~2025-03-31 | US_ITS ---
US thyroid INDICATION: Follow-up thyroid mass TECHNIQUE: Real-time sonographic images of the thyroid gland were obtained. COMPARISON: 09/01/2021 FINDINGS: The right thyroid lobe measures 6.0 x 3.1 x 2.0. The left thyroid lobe measures 5.7 x 2.1 x 1.9. Interval increase in size of the previously 1.9, currently 2.3 cm predominantly solid hypoechoic TI RADS 4 mass at the inferior right thyroid lobe which remains wider than tall with smooth margins and without echogenic foci but with interval development of a small cystic component. There is heterogeneous decreased echogenicity and coarsened echotexture throughout the remainder of the thyroid but with interval resolution of the previously seen diffuse hypervascularity likely related to thyroiditis. IMPRESSION: 1. Interval increase in size and development of a cystic component within a now 2.3 cm TI RADS 4 nodule at the inferior right thyroid lobe. This was recently biopsied in 12/11/2014 but given the interval increase in size could consider repeat ultrasound guided biopsy. Reviewed, dictated and finalized at location O. [employer] IMPRESSION: 1. Interval increase in size and development of a cystic component within a no w 2.3 cm TI RADS 4 nodule at the inferior right thyroid lobe. This was recently biopsied in 12/11/2014 but given the interval increase in size could consider r epeat ultrasound guided biopsy.
== END 2025-03-31 10:23 | disposition home or self-care (01) ==
LOC: MICIMG 10:23
PROVIDERS: PCP Emergency Medicine; Visit Provider Internal Medicine Endocrinology, Diabetes & Metabolism
DX: E04.1 Nontoxic single thyroid nodule (principal)
CPT/HCPCS: 76536